=== PATIENT | female | born 1955 | race Caucasian/White ===

== ENCOUNTER 2021-02-24 17:37 | Emergency (ER) | payer MEDICARE, OTHER, SELFPAY ==
[2021-02-24 17:52] VITALS: BP 183/76; PULSE 74; RESP 17; TEMP 36.9; O2SAT 98; BMI 28.3
== END 2021-02-24 19:36 | disposition left against medical advice (07) ==
PROVIDERS: Emergency Provider Emergency Medicine
DX: Z53.21 Procedure and treatment not carried out due to patient leaving prior to being seen by health care provider (principal)
CPT/HCPCS: 99281